=== PATIENT | male | born 1970 | race American Indian/Alaskan Native ===

== ENCOUNTER 2021-08-05 21:12 | Emergency (ER) | payer SELFPAY ==
--- NOTE | 2021-08-05 21:16 | EDM.PDOC ---
ED HPI GENERAL MEDICAL PROBLEM - General Stated Complaint: MEDICAL CLEARANCE Time Seen by Provider: 08/05/21 21:14 Source of Information: Reports: Patient, Police History Limitations: Reports: No Limitations - History of Present Illness INITIAL COMMENTS - FREE TEXT/NARRATIVE: HISTORY AND PHYSICAL: History of present illness: Patient is a 51-year-old male who presents to the emergency room with law enf orcement for medical clearance. Patient currently offers no complaints or concerns and declines any type of medical evaluation stating he feels fine. Law enforcement has no specific concerns other than he states he has a history of asthma. Patient denies any injury, trauma or falls. Patient denies any fever, chills, headache, change in vision, syncope or near syncope. Denies any chest pain, back pain, shortness of breath or cough. Denies any GI or symptoms. Patient has been eating and drinking appropriately. Review of systems: As per history of present illness and below otherwise all systems reviewed and negative. Past medical history: As per history of present illness and as reviewed below otherwise noncontributory. Surgical history: As per history of present illness and as reviewed below otherwise noncontributory. Social history: See social history for further information Family history: As per history of present illness and as reviewed below otherwise noncontributor y. Physical exam: General: Well developed and well nourished. Alert and orientated x 3. Answering questions appropriately. Nontoxic in appearance and in no acute distress. Vital signs are stable and have been reviewed by me. Nursing notes were reviewed. Accompanied by law enforcement. HEENT: Atraumatic, normocephalic, pupils equal and reactive bilaterally, negative for conjunctival pallor or scleral icterus, mucous membranes moist, trachea midline. No drooling or trismus noted. No meningeal signs. No hot potato voice noted. Lungs: Clear to auscultation, breath sounds equal bilaterally. Normal work of breathing, no accessory muscles used. Heart: S1S2, regular rate and rhythm without overt murmur Abdomen: Soft, nondistended, nontender. Negative for masses or costovertebral tenderness. Skin: Intact, warm, dry. No lesions or rashes noted. Hematologic: No petechiae or purpra. Mucosa appropriate color and normal nail bed color and refill. Extremities: Ambulatory, moves all extremities per self without difficulty or deficits. Neurovascular unremarkable. Neuro: Awake, alert, oriented. Cranial nerves II through XII unremarkable. Cerebellum unremarkable. Motor and sensory unremarkable throughout. Exam nonfocal. Psychiatric: Mood and affect are appropriate. Normal thought process. Answering questions appropriately. Please note that the patient was seen and evaluated during the 2019 SARS-CoV-2 novel coronavirus pandemic period. Community viral transmission is ongoing at time of this encounter and the emergency department is operating under pandemic response procedures. Medical Decision Making: Law enforcement has no specific concerns for today's ER visit. 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 Reassessment at the time of disposition demonstrates that the patient is in no acute distress. The patient is stable for discharge, counseling was provided and we discussed in great detail signs and symptoms that would prompt them to return to the Emergency Department. Medication, follow up and supportive care measures were reviewed and discussed. Voices understanding and is agreeable to plan of care. Denies any further questions or concerns at this time. Diagnostics: Refuses blood glucose check Therapeutics: None Prescription: None Impression: Encounter for medical screening Plan: 1. Today your physical exam and vital signs are within normal limits. 2. We encourage you to follow up with your primary care provider and/or recommended specialist in the next few days for re-evaluation and further care/management. 3. If you should develop symptoms or feel the need to be evaluated in the emergency department - please feel free to return or call 911 if necessary. Definitive disposition and diagnosis as appropriate pending reevaluation and review of above. - Related Data Allergies Allergy/AdvReac Type Severity Reaction Status Date / Time Unable to Assess Allergy Unverified 07/02/14 14:43 ED ROS GENERAL - Review of Systems Review Of Systems: Comprehensive ROS is negative, except as noted in HPI. ED EXAM, GENERAL - Physical Exam Exam: See Below (See dictation) Course - Vital Signs Last Recorded V/S: Last Vital Signs Temp 98.4 F 08/05/21 21:14 Pulse 101 H 08/05/21 21:14 Resp 18 08/05/21 21:14 BP 139/84 08/05/21 21:14 Pulse Ox 96 08/05/21 21:14 Departure - Departure Time of Disposition: 21:21 Disposition: Home, Self-Care 01 Condition: Good Clinical Impression: Encounter for medical screening examination - Discharge Information Instructions: Medical Screening Exam Forms: ED Department Discharge Additional Instructions: The following information is given to patients seen in the emergency department who are being discharged to home. This information is to outline your options for follow-up care. We provide all patients seen in our emergency department with a follow-up referral. The need for follow-up, as well as the timing and circumstances, are variable depending upon the specifics of your emergency department visit. If you don't have a primary care physician on staff, we will provide you with a referral. We always advise you to contact your personal physician following an emergency department visit to inform them of the circumstance of the visit and for follow-up with them and/or the need for any referrals to a consulting specialist. The emergency department will also refer you to a specialist when appropriate. This referral assures that you have the opportunity for follow-up care with a specialist. All of these measure are taken in an effort to provide you with optimal care, which includes your follow-up. Under all circumstances we always encourage you to contact your private physician who remains a resource for coordinating your care. When calling for follow-up care, please make the office aware that this follow-up is from your recent emergency room visit. If for any reason you are refused follow-up, please contact the [facility] at and asked to speak to the emergency department charge nurse. [facility] [address] [place] [address] [place] [address] Thank you for choosing the [facility] emergency department in [place] for your medical needs today. It was a pleasure caring for you. Today you were seen in the emergency department for medical screening exam 1. Today your physical exam and vital signs are within normal limits. 2. We encourage you to follow up with your primary care provider and/or recommended specialist in the next few days for re-evaluation and further care/management. 3. If you should develop symptoms or feel the need to be evaluated in the emergency department - please feel free to return or call 911 if necessary. Sepsis Event Note (ED) - Focused Exam Vital Signs: Vital Signs Temp Pulse Resp BP Pulse Ox 08/05/21 21:14 98.4 F 101 H 18 139/84 96
== END 2021-08-05 21:25 ==
LOC: MW.ED 21:12
DX: Z02.89 Encounter for other administrative examinations (principal)
CPT/HCPCS: 99283

== ENCOUNTER 2023-04-19 09:41 | Emergency (ER) | payer BC ==
[2023-04-19] MEDS ORDERED: Methocarbamol 750 MG TAB PO STA (10:03)
[2023-04-19] MEDS ORDERED: Lidocaine 4% 1 each Patch TOP SCH (10:15)
== END 2023-04-19 13:18 | disposition home or self-care (01) ==
LOC: MW.ED 09:41
DX: S82.001A Unspecified fracture of right patella, initial encounter for closed fracture (principal); S83.91XA Sprain of unspecified site of right knee, initial encounter; W21.02XA Struck by soccer ball, initial encounter
CPT/HCPCS: 73562; 99283; A9270